=== PATIENT | female | born 2005 | race Two or more races ===

== ENCOUNTER 2025-05-22 10:47 | Outpatient (CLI) | payer OTHER | END 2025-05-22 17:00 | disposition home or self-care (01) | LOC: LAB 10:47 | PROVIDERS: ATTEND Anesthesiology | DX: Z01.84 Encounter for antibody response examination (principal) | CPT/HCPCS: 36415; 86706; 86735; 86762; 86765; 86787 ==

== ENCOUNTER → 2025-07-11 | Outpatient (CLI) | payer OTHER | END | disposition home or self-care (01) | LOC: LAB 10:09 | DX: Z01.84 Encounter for antibody response examination (principal) | CPT/HCPCS: 86787 ==